=== PATIENT | male | born 1980 | race Caucasian/White ===

== ENCOUNTER 2018-08-20 10:49 | Outpatient (CLI) | payer OTHER | END 2018-08-20 10:50 | disposition home or self-care (01) | LOC: C.LAB 10:49 | DX: R20.0 Anesthesia of skin (principal); R42 Dizziness and giddiness; R00.1 Bradycardia, unspecified; Z13.9 Encounter for screening, unspecified ==

== ENCOUNTER 2018-08-27 08:07 | Outpatient (CLI) | payer OTHER | END 2018-08-27 08:08 | disposition home or self-care (01) | LOC: C.CARD 08:07 | DX: R00.1 Bradycardia, unspecified (principal); R42 Dizziness and giddiness ==